=== PATIENT | female | born 1950 | race American Indian/Alaskan Native ===

== ENCOUNTER 2018-12-26 09:16 | Emergency (ER) | payer MEDICARE ==
--- NOTE | 2018-12-26 09:32 | Emergency Department Report ---
ED ENT HPI - General Chief complaint: Dental/Oral Stated complaint: TOOTHACHE Time Seen by Provider: 12/26/18 09:28 Source: patient Mode of arrival: Ambulatory Limitations: No Limitations - History of Present Illness MD complaint: tooth pain -: Last night Severity: moderate Severity scale (0 -10): 5 Improves with: none - Related Data Home Medications Medication Instructions Recorded Confirmed Last Taken AtorvaSTATin [Lipitor] 40 mg PO QHS 12/04/17 12/04/17 12/04/17 Valsartan [Diovan] 320 mg PO QDAY 12/04/17 12/04/17 12/04/17 cloNIDine [Catapres] 0.1 mg PO BID 12/04/17 12/04/17 12/04/17 Previous Rx's Medication Instructions Recorded Last Taken Type hydrALAZINE [Apresoline TAB] 25 mg PO Q8HR #90 tab 12/06/17 Unknown Rx Aspirin [Aspirin BABY CHEW TAB] 81 mg PO QDAY #30 tab.chew 12/10/17 Unknown Rx Clopidogrel [Plavix] 75 mg PO QDAY #30 tablet 12/10/17 Unknown Rx Metoprolol [Lopressor TAB] 100 mg PO BID #60 tablet 12/10/17 Unknown Rx Allergies Allergy/AdvReac Type Severity Reaction Status Date / Time No Known Allergies Allergy Unverified 12/04/17 15:00 ED Dental HPI - General Chief complaint: Dental/Oral Stated complaint: TOOTHACHE Time Seen by Provider: 12/26/18 09:28 Source: patient Mode of arrival: Ambulatory Limitations: No Limitations - Related Data Home Medications Medication Instructions Recorded Confirmed Last Taken AtorvaSTATin [Lipitor] 40 mg PO QHS 12/04/17 12/04/17 12/04/17 Valsartan [Diovan] 320 mg PO QDAY 12/04/17 12/04/17 12/04/17 cloNIDine [Catapres] 0.1 mg PO BID 12/04/17 12/04/17 12/04/17 Previous Rx's Medication Instructions Recorded Last Taken Type hydrALAZINE [Apresoline TAB] 25 mg PO Q8HR #90 tab 12/06/17 Unknown Rx Aspirin [Aspirin BABY CHEW TAB] 81 mg PO QDAY #30 tab.chew 12/10/17 Unknown Rx Clopidogrel [Plavix] 75 mg PO QDAY #30 tablet 12/10/17 Unknown Rx Metoprolol [Lopressor TAB] 100 mg PO BID #60 tablet 12/10/17 Unknown Rx Allergies Allergy/AdvReac Type Severity Reaction Status Date / Time No Known Allergies Allergy Unverified 12/04/17 15:00 ED Review of Systems ROS: Stated complaint: TOOTHACHE Other details as noted in HPI Comment: All other systems reviewed and negative Constitutional: denies: chills, fever Respiratory: denies: cough, shortness of breath Cardiovascular: denies: chest pain ED Past Medical Hx - Past Medical History Hx Hypertension: Yes Hx Congestive Heart Failure: No Hx Diabetes: No Hx Asthma: No Hx COPD: No Additional medical history: hld - Surgical History Past Surgical History?: Yes Additional Surgical History: Cardiac stent 2017 - Social History Smoking Status: Never Smoker Substance Use Type: Prescribed - Medications Home Medications: Home Medications Medication Instructions Recorded Confirmed Last Taken Type AtorvaSTATin [Lipitor] 40 mg PO QHS 12/04/17 12/04/17 12/04/17 History Valsartan [Diovan] 320 mg PO QDAY 12/04/17 12/04/17 12/04/17 History cloNIDine [Catapres] 0.1 mg PO BID 12/04/17 12/04/17 12/04/17 History hydrALAZINE [Apresoline TAB] 25 mg PO Q8HR #90 tab 12/06/17 Unknown Rx Aspirin [Aspirin BABY CHEW TAB] 81 mg PO QDAY #30 tab.chew 12/10/17 Unknown Rx Clopidogrel [Plavix] 75 mg PO QDAY #30 tablet 12/10/17 Unknown Rx Metoprolol [Lopressor TAB] 100 mg PO BID #60 tablet 12/10/17 Unknown Rx ED Physical Exam - General Limitations: No Limitations General appearance: alert, in no apparent distress - Head Head exam: Present: atraumatic, normocephalic, normal inspection - Eye Eye exam: Present: normal appearance - ENT ENT exam: Present: other (left upper teeth) - Neck Neck exam: Present: normal inspection, full ROM. Absent: tenderness, meningismus, lymphadenopathy, thyromegaly - Respiratory Respiratory exam: Present: normal lung sounds bilaterally. Absent: respiratory distress, wheezes, rales, rhonchi, chest wall tenderness, accessory muscle use, decreased breath sounds - Cardiovascular Cardiovascular Exam: Present: regular rate, normal rhythm, normal heart sounds ED Course Vital Signs 12/26/18 09:22 Temperature 98.4 F Pulse Rate 74 Respiratory 18 Rate Blood Pressure 142/68 O2 Sat by Pulse 99 Oximetry Critical care attestation.: If time is entered above; I have spent that time in minutes in the direct care of this critically ill patient, excluding procedure time. ED Disposition Clinical Impression: Dental abscess Disposition: [id number] TO HOME OR SELFCARE Is pt being admited?: No Condition: Stable Instructions: Dental Abscess (ED)
== END 2018-12-26 10:28 | disposition home or self-care (01) ==
LOC: ED 09:16
CPT/HCPCS: 99282